=== PATIENT | female | born 1945 | race Caucasian/White ===

== ENCOUNTER 2017-05-18 10:23 | Emergency (ER) | payer OTHER ==
[~2017-05-18] VITALS: Ht 157.5 cm; Wt 61.2 kg
[~2017-05-18 10:23] MED LIST: ACET325; ASPI81CH PO; ASPI81EC PO; ATOR10 PO; Aspir 8181 MG; COPAXIN; Copaxone20 MG INJ; DOCU100; ESTRTP VAG; Fish Oil300 MG; HYDR1TAB94; METF500; METR500; MULTI VITAMIN1 EACH; OXYB5 PO; PARO10; PARO10 PO; PRAV10 PO; SACC250C; SENN187 PO; TRIM100 PO; VITAMIN D31000 UNIT; Vesicare10 MG PO; [UNRECOGNIZED DRUG - OTHER] SQ
== END 2017-05-18 13:33 | disposition home or self-care (01) ==
LOC: ER 10:23
DX: Z46.6 Encounter for fitting and adjustment of urinary device (principal); Z88.0 Allergy status to penicillin; Z88.1 Allergy status to other antibiotic agents; Z88.8 Allergy status to other drugs, medicaments and biological substances; Z79.899 Other long term (current) drug therapy; Z79.82 Long term (current) use of aspirin; Z87.891 Personal history of nicotine dependence
CPT/HCPCS: 51705; 99283; C2627

== ENCOUNTER 2017-06-13 09:49 | Emergency (ER) | payer OTHER ==
[~2017-06-13] VITALS: Ht 157.5 cm; Wt 59.0 kg
== END 2017-06-13 10:38 | disposition home or self-care (01) ==
LOC: ER 09:49
DX: Z46.6 Encounter for fitting and adjustment of urinary device (principal); Z87.891 Personal history of nicotine dependence; Z88.0 Allergy status to penicillin; Z88.1 Allergy status to other antibiotic agents; Z88.8 Allergy status to other drugs, medicaments and biological substances; Z79.899 Other long term (current) drug therapy; Z79.84 Long term (current) use of oral hypoglycemic drugs
CPT/HCPCS: 51102; 99283; C2627

== ENCOUNTER 2017-07-13 11:51 | Emergency (ER) | payer OTHER ==
[~2017-07-13] VITALS: Ht 162.6 cm; Wt 77.1 kg
== END 2017-07-13 13:05 | disposition home or self-care (01) ==
LOC: ER 11:51
DX: T83.498A Other mechanical complication of other prosthetic devices, implants and grafts of genital tract, initial encounter (principal); Z88.0 Allergy status to penicillin; Z88.1 Allergy status to other antibiotic agents; Z88.8 Allergy status to other drugs, medicaments and biological substances; Z79.899 Other long term (current) drug therapy; Z79.82 Long term (current) use of aspirin; Z79.84 Long term (current) use of oral hypoglycemic drugs; Z87.891 Personal history of nicotine dependence
CPT/HCPCS: 51102; 99283; C2627

== ENCOUNTER 2017-08-09 09:05 | Emergency (ER) | payer OTHER ==
[~2017-08-09] VITALS: Ht 160 cm; Wt 59.0 kg
[2017-08-09 10:23] LABS: Source, Urine Catheter
[2017-08-09 11:10] LABS: Bilirubin, Urine Neg (Neg); Blood, Urine 5+ (Neg); Glucose Qualitative, Urine Neg (Neg); Ketones, Urine Neg (Neg); Leukocyte Esterase, Urine 3+ (Neg); Nitrite, Urine Neg (Neg); Protein, Urine 4+ (Neg); Urobilinogen, Urine NORM (Normal)
[2017-08-09 11:21] LABS: Appearance, Urine Turbid (Clear); Color, Urine Red (P-Yellow)
[2017-08-09 11:23] LABS: Red Blood Cells, Urine TNTC /hpf (0-2); White Blood Cells, Urine TNTC /hpf (0-5)
[2017-08-09 11:24] LABS: Bacteria Many /hpf; Squamous Epithelial Cells Mod /hpf (Few)
[2017-08-09 11:30] LABS: Triple Phosphate Crystals Many /hpf
[2017-08-09 11:35] LABS: Mucus Heavy (0-Heavy)
[2017-08-09 11:38] LABS: Amorphous Heavy (0-Heavy)
== END 2017-08-09 10:30 | disposition home or self-care (01) ==
LOC: ER 09:05
PROVIDERS: Emergency Medicine
DX: Z46.6 Encounter for fitting and adjustment of urinary device (principal); Z87.891 Personal history of nicotine dependence; Z88.0 Allergy status to penicillin; Z88.1 Allergy status to other antibiotic agents; Z79.899 Other long term (current) drug therapy; Z79.82 Long term (current) use of aspirin; Z79.84 Long term (current) use of oral hypoglycemic drugs
CPT/HCPCS: 51102; 81001; 87086; 99283

== ENCOUNTER → 2017-09-04 | Outpatient (CLI) | payer OTHER | END | disposition home or self-care (01) | LOC: LAB SHORT 11:29 → LAB EV 11:29 | DX: R35.0 Frequency of micturition (principal) | CPT/HCPCS: 87086 ==

== ENCOUNTER 2018-03-30 00:27 | Day surgery (SDC) | payer OTHER ==
[~2018-03-30 00:27] MED LIST changes: +FISH OIL OMEGA1 EAC2 PO; -Fish Oil300 MG; -METF500; +METF500C PO; -MULTI VITAMIN1 EACH; +MULTI VITAMIN1 EACH PO
[2018-03-30] MEDS ORDERED: VITAMIN D31000 UNIT PO (14:30)
[2018-03-30] MEDS ORDERED: GLUC500 PO (14:32)
== END 2018-03-30 22:40 | disposition home or self-care (01) ==
LOC: ATC 00:27
DX: N39.0 Urinary tract infection, site not specified (principal); B96.1 Klebsiella pneumoniae [K. pneumoniae] as the cause of diseases classified elsewhere
CPT/HCPCS: J1335

== ENCOUNTER 2018-03-31 00:09 | Day surgery (SDC) | payer OTHER ==
[~2018-03-31 00:09] MED LIST changes: +GLUC500 PO; +VITAMIN D31000 UNIT PO
== END 2018-03-31 22:40 | disposition home or self-care (01) ==
LOC: ATC 00:09
DX: N39.0 Urinary tract infection, site not specified (principal); B96.1 Klebsiella pneumoniae [K. pneumoniae] as the cause of diseases classified elsewhere; G35 Multiple sclerosis; Z88.0 Allergy status to penicillin; Z88.8 Allergy status to other drugs, medicaments and biological substances
CPT/HCPCS: 96365; J1335

== ENCOUNTER 2018-04-01 07:41 | Day surgery (SDC) | payer OTHER | END 2018-04-01 23:15 | disposition home or self-care (01) | LOC: ATC 07:41 | DX: N39.0 Urinary tract infection, site not specified (principal); B96.1 Klebsiella pneumoniae [K. pneumoniae] as the cause of diseases classified elsewhere; G35 Multiple sclerosis; Z88.0 Allergy status to penicillin; Z88.8 Allergy status to other drugs, medicaments and biological substances | CPT/HCPCS: 96365; J1335 ==

== ENCOUNTER 2018-04-03 00:19 | Day surgery (SDC) | payer OTHER ==
--- NOTE | 2018-04-03 16:19 | NUR ---
PT STATES THAT SHE WILL NOT STAY BECAUSE SHE IS "HAVING ANXIETY" PT'S ANTIBIOTIC INFUSED. ONLY WAITED 5 MIN. PT IN MOTORIZED W/C, ENCOURAGED TO STAY.
== END 2018-04-03 15:00 | disposition home or self-care (01) ==
LOC: ATC 00:19
DX: N39.0 Urinary tract infection, site not specified (principal); B96.1 Klebsiella pneumoniae [K. pneumoniae] as the cause of diseases classified elsewhere; G35 Multiple sclerosis; Z88.0 Allergy status to penicillin; Z88.8 Allergy status to other drugs, medicaments and biological substances
CPT/HCPCS: 96365; J1335

== ENCOUNTER 2018-04-04 07:55 | Day surgery (SDC) | payer OTHER | END 2018-04-04 14:50 | disposition home or self-care (01) | LOC: ATC 07:55 | DX: N39.0 Urinary tract infection, site not specified (principal); B96.1 Klebsiella pneumoniae [K. pneumoniae] as the cause of diseases classified elsewhere; G35 Multiple sclerosis; Z88.0 Allergy status to penicillin; Z88.8 Allergy status to other drugs, medicaments and biological substances | CPT/HCPCS: 96365; J1335 ==

== ENCOUNTER 2018-04-05 07:51 | Day surgery (SDC) | payer OTHER | END 2018-04-05 14:34 | disposition home or self-care (01) | LOC: ATC 07:51 | DX: N39.0 Urinary tract infection, site not specified (principal); B96.1 Klebsiella pneumoniae [K. pneumoniae] as the cause of diseases classified elsewhere; G35 Multiple sclerosis; Z88.0 Allergy status to penicillin; Z88.8 Allergy status to other drugs, medicaments and biological substances | CPT/HCPCS: 96365; J1335 ==

== ENCOUNTER 2018-04-06 13:22 | Day surgery (SDC) | payer OTHER | END 2018-04-06 14:23 | disposition home or self-care (01) | LOC: ATC 13:22 | DX: N39.0 Urinary tract infection, site not specified (principal); B96.1 Klebsiella pneumoniae [K. pneumoniae] as the cause of diseases classified elsewhere; G35 Multiple sclerosis; Z88.1 Allergy status to other antibiotic agents; Z88.0 Allergy status to penicillin; Z79.899 Other long term (current) drug therapy; Z79.82 Long term (current) use of aspirin | CPT/HCPCS: 96365; J1335 ==

== ENCOUNTER 2018-04-07 13:47 | Day surgery (SDC) | payer OTHER | END 2018-04-07 14:27 | disposition home or self-care (01) | LOC: ATC 13:47 | DX: N39.0 Urinary tract infection, site not specified (principal); G35 Multiple sclerosis; B96.1 Klebsiella pneumoniae [K. pneumoniae] as the cause of diseases classified elsewhere; Z88.1 Allergy status to other antibiotic agents; Z88.0 Allergy status to penicillin; Z79.82 Long term (current) use of aspirin; Z79.899 Other long term (current) drug therapy | CPT/HCPCS: 96365; J1335 ==

== ENCOUNTER → 2018-12-26 | Outpatient (CLI) | payer OTHER | END | disposition home or self-care (01) | LOC: PLD 08:18 → LAB SHORT 08:18 | DX: D48.5 Neoplasm of uncertain behavior of skin (principal) | CPT/HCPCS: 88305 ==

== ENCOUNTER → 2019-07-11 | Outpatient (CLI) | payer OTHER ==
[2019-07-11 22:11] LABS: Source, Urine Catheter
[2019-07-11 22:15] LABS: Bilirubin, Urine Neg (Neg); Blood, Urine 5+ (Neg); Glucose Qualitative, Urine Neg (Neg); Ketones, Urine Neg (Neg); Leukocyte Esterase, Urine 2+ (Neg); Nitrite, Urine Neg (Neg); Protein, Urine 3+ (Neg); Urobilinogen, Urine NORM (Normal)
[2019-07-11 22:28] LABS: Appearance, Urine Cloudy (Clear); Color, Urine Yellow (P-Yellow)
[2019-07-11 22:37] LABS: Bacteria Mod /hpf; Mucus Mod (0-Heavy); Squamous Epithelial Cells Mod /hpf (Few); Transitional Epithelial Cells Few /hpf (0-Rare)
== END | disposition home or self-care (01) ==
LOC: LAB 19:30 → LAB SHORT 19:30
PROVIDERS: Hospitalist
DX: I08.0 Rheumatic disorders of both mitral and aortic valves (principal); E78.5 Hyperlipidemia, unspecified; E55.9 Vitamin D deficiency, unspecified; G35 Multiple sclerosis; I10 Essential (primary) hypertension; N31.9 Neuromuscular dysfunction of bladder, unspecified; R33.9 Retention of urine, unspecified; R51 Headache
CPT/HCPCS: 81001; 87077; 87086; 87186

== ENCOUNTER 2020-05-05 09:53 | Inpatient (IN) | payer OTHER, MEDICARE ==
[~2020-05-05] VITALS: Ht 165.1 cm; Wt 56.9 kg
[~2020-05-05 09:53] MED LIST changes: -ATOR10 PO; -Copaxone20 MG INJ; -METF500C PO; -PARO10 PO
[2020-05-05 10:14] LABS: Source, Urine Clean Catch
[2020-05-05 10:23] LABS: BASOPHILS ABSOLUTE AUTO 0.06 K/mm3 (0.00-0.23); BASOPHILS PERCENT AUTO 1 % (0-2); EOSINOPHILS ABSOLUTE AUTO 0.37 K/mm3 (0.00-0.68); EOSINOPHILS PERCENT AUTO 7 % (0-6); Hematocrit 43.2 % (33.0-51.0); Hemoglobin 13.9 g/dL (11.5-16.0); IMMATURE GRAN ABSOLUTE AUTO 0.01 K/mm3 (0.00-0.10); IMMATURE GRAN PERCENT AUTO 0 % (0-1); LYMPHOCYTES PERCENT AUTO 27 % (21-46); MONOCYTES ABSOLUTE AUTO 0.44 K/mm3 (0.16-1.47); MONOCYTES PERCENT AUTO 9 % (4-13); Mean Corpuscular HGB 28.8 pg (26.0-34.0); Mean Corpuscular HGB Conc 32.2 g/dL (31.5-36.5); Mean Corpuscular Volume 89 fL (80-100); Mean Platelet Volume 9.1 fL (9.1-12.4); NEUTROPHILS ABSOLUTE AUTO 2.85 K/mm3 (1.96-9.15); NEUTROPHILS PERCENT AUTO 56 % (41-73); Platelet Count 279 K/mm3 (150-400); RDW Coefficient Variation 14.6 % (11.7-14.2); Red Blood Cell Count 4.83 M/mm3 (3.80-5.20); White Blood Cell Count 5.13 K/mm3 (4.00-11.30)
[2020-05-05 10:25] LABS: Appearance, Urine Turbid (Clear); Bilirubin, Urine Neg (Neg); Blood, Urine 5+ (Neg); Color, Urine Yellow (P-Yellow); Glucose Qualitative, Urine Neg (Neg); Ketones, Urine Neg (Neg); Leukocyte Esterase, Urine 3+ (Neg); Nitrite, Urine Pos (Neg); Protein, Urine 2+ (Neg); Urobilinogen, Urine NORM (Normal)
[2020-05-05 10:38] LABS: Alanine Aminotransfer (ALT/SGP 15 U/L (12-78); Albumin, Blood 3.5 g/dL (3.4-5.0); Alk Phos 79 U/L (50-136); Anion Gap 6 mmol/L (6-16); Aspartate Aminotrans (AST/SGOT 16 U/L (12-37); Bilirubin, Total 0.5 mg/dL (0.1-1.0); Blood Urea Nitrogen 18 mg/dL (8-24); Bun/Creatinine Ratio 19.2 (12.0-20.0); CO2, Blood 29 mmol/L (21-32); Calcium, Blood 8.8 mg/dL (8.5-10.1); Chloride, Blood 108 mmol/L (98-108); Creatinine, Blood 0.94 mg/dL (0.40-1.00); Globulin, Blood 3.5 g/dL (2.2-4.0); Glomerular Filtration Rate >60 (60-); Glucose, Blood 95 mg/dL (70-99); Potassium, Blood 4.2 mmol/L (3.5-5.5); Sodium, Blood 143 mmol/L (136-145)
[2020-05-05 10:53] LABS: Bacteria Many /hpf; Squamous Epithelial Cells Few /hpf (Few); Triple Phosphate Crystals Few /hpf
[2020-05-05] MEDS ORDERED: PARO10 PO (12:27)
[2020-05-05] MEDS ORDERED: SPIRONOLACTONE25 MG PO (12:28)
[2020-05-05] MEDS ORDERED: COPAXONE40 MG/1 ML SC (12:28)
[2020-05-05] MEDS ORDERED: METF500 PO (12:29)
[2020-05-05] MEDS ORDERED: ATOR40TA PO (12:29)
--- NOTE | 2020-05-05 16:45 | NUR ---
PT UNABLE TO ANSWER QUESTIONS DURING ADMISSION ASSESSMENT
--- NOTE | 2020-05-05 19:29 | NUR ---
SHIFT SUMMARY PT IS A&0X2, KNOWS NAME A . PT IS UNABLE TO ANSWER MOST QUESTIONS, SHE PAUSES AND THEN BECOMES FRUSTRATED WITH NOT BEING ABLE TO COME UP WITH THE WORDS. SHE WILL BE COME FOCUED AND IS HARD TO REORIENT. FOR EXAMPLE TRYING TO DIAL A PHONE NUMBER OVER AND BECOMES FRUSTRATED WHEN IT DOES NOT RING. UNABLE TO GET A COMPLETE HISTORY FOR PT. SHE HAS A SUPERPUBIC CATH IN PLACE. PT IS CONTIENT OF BOWEL. PRESSURE ULCER NOTED ON COCCYX OF PT, PICTURES IN CHART AND MEPILEX APPLIED. PT CURENTLY IN ROOM ON PHONE WITH CAREGIVER. BEDSIDE REPORT GIVEN TO ONCOMING FITNESS FLOOR ATTENDANT NURSE.
[2020-05-06 05:09] LABS: BASOPHILS ABSOLUTE AUTO 0.03 K/mm3 (0.00-0.23); BASOPHILS PERCENT AUTO 1 % (0-2); EOSINOPHILS ABSOLUTE AUTO 0.32 K/mm3 (0.00-0.68); EOSINOPHILS PERCENT AUTO 6 % (0-6); Hematocrit 42.8 % (33.0-51.0); Hemoglobin 13.8 g/dL (11.5-16.0); IMMATURE GRAN ABSOLUTE AUTO 0.01 K/mm3 (0.00-0.10); IMMATURE GRAN PERCENT AUTO 0 % (0-1); LYMPHOCYTES ABSOLUTE AUTO 1.45 K/mm3 (0.84-5.20); LYMPHOCYTES PERCENT AUTO 26 % (21-46); MONOCYTES ABSOLUTE AUTO 0.45 K/mm3 (0.16-1.47); MONOCYTES PERCENT AUTO 8 % (4-13); Mean Corpuscular HGB 28.8 pg (26.0-34.0); Mean Corpuscular HGB Conc 32.2 g/dL (31.5-36.5); Mean Corpuscular Volume 89 fL (80-100); Mean Platelet Volume 8.9 fL (9.1-12.4); NEUTROPHILS ABSOLUTE AUTO 3.27 K/mm3 (1.96-9.15); NEUTROPHILS PERCENT AUTO 59 % (41-73); Platelet Count 265 K/mm3 (150-400); RDW Coefficient Variation 14.4 % (11.7-14.2); RDW Standard Deviation 47.1 fL (35.1-46.3); Red Blood Cell Count 4.79 M/mm3 (3.80-5.20); White Blood Cell Count 5.53 K/mm3 (4.00-11.30)
[2020-05-06 05:26] LABS: Anion Gap 7 mmol/L (6-16); Blood Urea Nitrogen 20 mg/dL (8-24); Bun/Creatinine Ratio 22.5 (12.0-20.0); CO2, Blood 26 mmol/L (21-32); Calcium, Blood 9.3 mg/dL (8.5-10.1); Chloride, Blood 108 mmol/L (98-108); Creatinine, Blood 0.89 mg/dL (0.40-1.00); Glomerular Filtration Rate >60 (60-); Glucose, Blood 113 mg/dL (70-99); Magnesium, Blood 2.2 mg/dL (1.6-2.4); Potassium, Blood 3.8 mmol/L (3.5-5.5); Sodium, Blood 141 mmol/L (136-145)
--- NOTE | 2020-05-06 07:49 | NUR ---
SHIFT SUMMARY: PATIENT CONTINUES TO HAVE CONFUSION THIS AM BUT IS A LITTLE LESS FRUSTRATED WITH TRYING TO USE TV REMOTE AND PHONE. SUPRA PUBIC CATHETHER IS PATENT FOR 800ML OF YELLOW URINE, NO ODOR OBSERVED. THIS AM PATIENT BECOMES VERY IRRITATED WHEN SHE ASKED TOOL AND DIE ASSEMBLER TO DISEMPACT HER FOR ELIMINATION. EDUCATION WAS GIVEN THAT THIS PROCEEDURE WOULD HAVE TO BE APPROVED BY MD AND VERIFY WITH BORDER MEASURER AND CUTTER THAT THIS IS CORRET INFORMATION. PATIENT DENIED ABD. PAIN, POSITIVE BS IN ALL QUADS OBSERVED. BED ALARM IS ON FOR SAFETY.
--- NOTE | 2020-05-06 13:44 | NUR ---
CARE COORDINATION REFERRAL - ADMIT: 05/05/20 DISCHARGE: DX: AMS, UTI, CONFUSION CC: KWILCOX JAMES CALL: RESIDENCE: HOME CAREGIVER: VINICIUS CLARK, FAMILY MEMBER, DX: MS, DM, ANEMIA, ACUTE CYSTITIS, SEE LIST DME: WHEELCHAIR, DM SUPPLIES, SHOWER CHAIR, LIFT CHAIR CCM: REFERRAL 07/22/2019 HOME HEALTH: [facility]; [facility] SUMMARY: ADMIT: 05/05/20
--- NOTE | 2020-05-06 14:30 | NUR ---
Transfer of Care Patient transferred from 329 to 346 d/t continued confusion. Report given to Maria Teresa REYNAGA. Patient transferred with bed and personal belongings. Family has been notified of room transfer. A/O to self. Easily agitated and frustrated d/t inability to verbally make needs known. Calls inappropriately by yelling. C/O headache, medicated x 1. Patient refused physical therapy. Received in report that patient is wheelchair bound d/t MS. Suprapubic intact and draining.
--- NOTE | 2020-05-06 17:12 | NUR ---
SHIFT SUMMARY PT TRANSFERED TO ROOM 346 THIS AFTERNOON. PT CALLS OUT INTO HALLWAY OFTEN AND ALERT TO SELF ONLY. PT HAS DIFFICULTY FINDING THE RIGHT WORDS WHEN IN NEED. PT MEDICATED FOR A VAZQUEZ ONCE SINCE TRANSFERED. PT SISTER, LINDSAY FROM [place] CAME IN TO SEE PT WANTING AN UPDATE. LINDSAY IS NOT LISTED A PERSON TO CONTACT. LINDSAY INFORMED THAT NO INFO CAN BE GIVEN AT THIS TIME & A SOCIAL SERVICE CONSULT WAS PLACED TO HELP DETERMINE A POA. SUPRAPUBIC CATH PATENT & DRAINING TO GRAVITY. PALLIATIVE CARE CONSULT PLACED BY DR. ANDERSON. PT RESTING IN BED. CALL LIGHT IN REACH.
--- NOTE | 2020-05-06 20:06 | NUR ---
ASSUMPTION OF CARE. KAYKAY IS ALERT TO SELF, DOES NOT KNOW DAY OR PLACE. SHE HAS DIFFICULTY FINDING WORDS AND TENDS TO BE ALL OVER THE PLACE IN CONVERSATION. SHE IS UNABLE TO FINISH A COMPLETE SENTENCE. FORGETS EASILY AND GETS STUCK ON ON IDEA FORGETTING WHAT SHE HAS BEEN TOLD. SUPERPUBIC CATH CLEAR YELLOW, DRAINAGE CRUSTED OVER ON SITE. WILL CLEAN AND PUT GAUZE IN PLACE. DENIES ANY PAIN OR DISCOMFORT. DRESSING TO COCCYX CDI PLACED YESTERDAY. CALL LIGHT IS IN REACH, BED ALARM IS ON.
--- NOTE | 2020-05-06 22:07 | NUR ---
DR. BERRY IN TO SEE THE PATIENT. AND DAUGHTER ARE AT BEDSIDE.
--- NOTE | 2020-05-06 23:58 | NUR ---
KAYKAY HAS BEEN A LITTLE UPSET THAT SHE DOES NOT GO HOME TONIGHT. TRIED TO EXPLAIN TO HER WHY SHE IS STAYING BUT SHE STILL CRIED FOR A FEW MINUTES. SINCE THEN SHE HAS BEEN WATCHING TV, SHE DID TRY TO USE THE BED LÓPEZ WITH NO RESULTS EXCEPT A SMEAR. CATH CARE WAS PERFORMED. BED ALARM IS COMPOUND WORKER LIGHT IS IN REACH.
--- NOTE | 2020-05-07 05:26 | NUR ---
SHIFT SUMMARY: ALERT TO SELF AT START OF SHIFT BUT THEN LATER SHE CALLED ME IN THE ROOM TO TELL ME THE ANSWERS TO SOME OF THE ORINTATION QUESTIONS LIKE SHE HAD BEEN PRACTICING THEM. CONFUSED AND UNABLE TO REMEMBER DIRECTIONS WELL. CALLS FREQUENTLY BUT IS UNABLE TO STATE NEEDS DUE TO DIFFICULTY IN FINDING WORDS. WANTED TO GO HOME LAST NIGHT AND GOT UPSET THAT SHE HAD TO STAY. CATHETER PATENT AND DRAINING. CATH CARE PROVIDED. DID GIVE SUPPOSITORY LAST NIGHT BUT ONLY HAVE HAD SCANT RESULTS. DENIES ANY PAIN OR COMPLAINTS. VS WNL, AFEBRILE. CALL LIGHT IN REACH, BED ALARM ON.
--- NOTE | 2020-05-07 12:53 | NUR ---
ADMIT: 05/05/20 DISCHARGE: 05/07/20 DX: AMS, UTI, Confusion CC: cpeabody JAMES CALL: Call caregiver at [facility] for james- Lissa, or her cell phone james appt 1 week. RESIDENCE: Home CAREGIVER: Lissa [phone] 6 days a week, 6 hours a day, family for Sat and back up Kristi Pinon, Family Member, Domonique, Sister [phone] DX: MS, DM, anemia, acute cystitis, see list DME: wheelchair, Dm supplies, shower chair, lift chair, indwelling castro cath CCM: Referral 07/22/2019 HOME HEALTH: [facility]-2020; [facility]- 2019- no home health servies needed. 05/07/20 SUMMARY: Admit: 05/05/20 05/07/20 Discharge home with caregiver assistance- 6 days a week, 6 hours a day, Family is also available to help with Caregiver not available. prefers Transport by Wheelchair. No home health needed. Has all the DME she needs. Discussed JAMES call and 1 week follow up with james. Reviewed discharge checklist, no needs identified. cp Acute encephalopathy
[2020-05-07] MEDS ORDERED: BISA10S PR (13:31)
[2020-05-07] MEDS ORDERED: MIRALAX17 GM PO (13:32)
--- NOTE | 2020-05-07 14:01 | NUR ---
SUMMARY/DISCHARGE PT BEING DISCHARGED HOME, PT VERBALIZED UNDERSTANDING OF DISCHARGE INSTRUCTIONS REGARDING FOLLOW UP AND MEDICATIONS, TRANSPORTATION ARRANGED BY CARE MANAGEMENT
--- NOTE | 2020-05-07 14:11 | NUR ---
PT TAKEN SAFELY OUT VIA WHEELCHAIR
== END 2020-05-07 14:08 | disposition home or self-care (01) | DRG 699 ==
LOC: ER 09:53 → ERHOLD 11:12 → MEDS 16:02
PROVIDERS: Emergency Medicine; ADMIT Internal Medicine
DX: T83.510A Infection and inflammatory reaction due to cystostomy catheter, initial encounter (principal); N39.0 Urinary tract infection, site not specified; N13.6 Pyonephrosis; G93.49 Other encephalopathy; N13.30 Unspecified hydronephrosis; G35 Multiple sclerosis; N31.9 Neuromuscular dysfunction of bladder, unspecified; E11.9 Type 2 diabetes mellitus without complications; E78.5 Hyperlipidemia, unspecified; F32.9 Major depressive disorder, single episode, unspecified; Z86.73 Personal history of transient ischemic attack (TIA), and cerebral infarction without residual deficits; Z88.0 Allergy status to penicillin; Z88.1 Allergy status to other antibiotic agents; Z90.49 Acquired absence of other specified parts of digestive tract; Z98.890 Other specified postprocedural states; Z87.891 Personal history of nicotine dependence; Z66 Do not resuscitate; Z79.899 Other long term (current) drug therapy; Z79.84 Long term (current) use of oral hypoglycemic drugs; Z87.442 Personal history of urinary calculi
CPT/HCPCS: 36415; 71045; 80048; 80053; 81001; 83735; 85025; 87086; 93005; 93010; 96374; 97162; 97530; 99285-25; A9270; J0696; J1650; J7050

== ENCOUNTER → 2020-06-17 | Outpatient (CLI) | payer OTHER ==
[~2020-06-17] MED LIST changes: +ATOR40TA PO; +BISA10S PR; +COPAXONE40 MG/1 ML SC; +METF500 PO; +MIRALAX17 GM PO; +PARO10 PO; +SPIRONOLACTONE25 MG PO
[2020-06-17 18:18] LABS: Appearance, Urine Hazy (Clear); Bilirubin, Urine Neg (Neg); Blood, Urine 3+ (Neg); Color, Urine Yellow (P-Yellow); Glucose Qualitative, Urine Neg (Neg); Ketones, Urine Neg (Neg); Leukocyte Esterase, Urine 3+ (Neg); Nitrite, Urine Pos (Neg); Protein, Urine 3+ (Neg); Urobilinogen, Urine NORM (Normal)
[2020-06-17 18:31] LABS: Amorphous Light (0-Heavy); Bacteria Many /hpf; Red Blood Cells, Urine 0-2 /hpf (0-2); Squamous Epithelial Cells Mod /hpf (Few); White Blood Cells, Urine TNTC /hpf (0-5)
== END | disposition home or self-care (01) ==
LOC: LAB 15:30 → LAB SHORT 15:30
PROVIDERS: Hospitalist
DX: Z43.5 Encounter for attention to cystostomy (principal); N30.00 Acute cystitis without hematuria
CPT/HCPCS: 81001; 87077; 87086; 87186

== ENCOUNTER → 2020-08-27 | Outpatient (CLI) | payer OTHER ==
[2020-08-27 17:27] LABS: Source, Urine Catheter
[2020-08-27 17:36] LABS: Appearance, Urine Cloudy (Clear); Bilirubin, Urine Neg (Neg); Blood, Urine 4+ (Neg); Color, Urine Yellow (P-Yellow); Glucose Qualitative, Urine Neg (Neg); Ketones, Urine Neg (Neg); Leukocyte Esterase, Urine 3+ (Neg); Nitrite, Urine Neg (Neg); Protein, Urine 3+ (Neg); Urobilinogen, Urine NORM (Normal)
[2020-08-27 17:44] LABS: Amorphous Light (0-Heavy); Bacteria Many /hpf; Squamous Epithelial Cells Mod /hpf (Few); White Blood Cells, Urine 25-50 /hpf (0-5)
== END | disposition home or self-care (01) ==
LOC: LAB SHORT 15:45 → LAB 15:45
PROVIDERS: Hospitalist
DX: G35 Multiple sclerosis (principal); N31.9 Neuromuscular dysfunction of bladder, unspecified; Z87.440 Personal history of urinary (tract) infections
CPT/HCPCS: 81001; 87077; 87086; 87186

== ENCOUNTER → 2021-03-18 | Outpatient (CLI) | payer OTHER ==
[2021-03-18 12:31] LABS: Microalb/Creat Ratio UR, Rand 219.858 mg/g (0.000-30.000)
== END | disposition home or self-care (01) ==
LOC: LAB SHORT 11:13
PROVIDERS: Hospitalist
DX: E11.9 Type 2 diabetes mellitus without complications (principal)
CPT/HCPCS: 82043; 82570

== ENCOUNTER → 2021-04-08 | Outpatient (CLI) | payer OTHER ==
[2021-04-08 14:49] LABS: Source, Urine Foley catheter
[2021-04-08 16:00] LABS: Bilirubin, Urine Neg (Neg); Blood, Urine 3+ (Neg); Glucose Qualitative, Urine Neg (Neg); Ketones, Urine 1+ (Neg); Leukocyte Esterase, Urine 3+ (Neg); Nitrite, Urine Neg (Neg); Protein, Urine 1+ (Neg); Specific Gravity, Urine 1.015 (1.003-1.022); Urobilinogen, Urine NORM (Normal)
[2021-04-08 16:15] LABS: Appearance, Urine Cloudy (Clear); Color, Urine Pale Yellow (P-Yellow)
[2021-04-08 16:15] LABS: BASOPHILS ABSOLUTE AUTO 0.05 K/mm3 (0.00-0.23); BASOPHILS PERCENT AUTO 1 % (0-2); EOSINOPHILS ABSOLUTE AUTO 0.29 K/mm3 (0.00-0.68); EOSINOPHILS PERCENT AUTO 4 % (0-6); Hematocrit 42.6 % (33.0-51.0); Hemoglobin 13.2 g/dL (11.5-16.0); IMMATURE GRAN ABSOLUTE AUTO 0.03 K/mm3 (0.00-0.10); IMMATURE GRAN PERCENT AUTO 0 % (0-1); LYMPHOCYTES ABSOLUTE AUTO 1.59 K/mm3 (0.84-5.20); LYMPHOCYTES PERCENT AUTO 22 % (21-46); MONOCYTES ABSOLUTE AUTO 0.52 K/mm3 (0.16-1.47); MONOCYTES PERCENT AUTO 7 % (4-13); Mean Corpuscular HGB 27.7 pg (26.0-34.0); Mean Corpuscular Volume 89 fL (80-100); NEUTROPHILS ABSOLUTE AUTO 4.72 K/mm3 (1.96-9.15); NEUTROPHILS PERCENT AUTO 66 % (41-73); Platelet Count 443 K/mm3 (150-400); RDW Coefficient Variation 14.1 % (11.7-14.2); RDW Standard Deviation 46.1 fL (35.1-46.3); Red Blood Cell Count 4.77 M/mm3 (3.80-5.20)
[2021-04-08 16:16] LABS: Bacteria Many /hpf; Squamous Epithelial Cells Mod /hpf (Few)
[2021-04-08 16:17] LABS: Amorphous Heavy (0-Heavy); Renal Epithelial Few /hpf (0-Rare)
[2021-04-08 16:46] LABS: Alanine Aminotransfer (ALT/SGP 14 U/L (12-78); Albumin/Globulin Ratio 0.8 (0.8-1.8); Alk Phos 101 U/L (50-136); Anion Gap 6 mmol/L (6-16); Aspartate Aminotrans (AST/SGOT 16 U/L (12-37); Bilirubin, Total 0.3 mg/dL (0.1-1.0); Blood Urea Nitrogen 15 mg/dL (8-24); Bun/Creatinine Ratio 19.4 (12.0-20.0); CO2, Blood 28 mmol/L (21-32); Calcium, Blood 9.4 mg/dL (8.5-10.1); Chloride, Blood 102 mmol/L (98-108); Creatinine, Blood 0.77 mg/dL (0.40-1.00); Globulin, Blood 3.9 g/dL (2.2-4.0); Glomerular Filtration Rate >60 (60-); Glucose, Blood 98 mg/dL (70-99); Potassium, Blood 4.2 mmol/L (3.5-5.5); Sodium, Blood 136 mmol/L (136-145); Total Protein, Blood 6.9 g/dL (6.4-8.2)
== END ==
LOC: LAB SHORT 14:42
PROVIDERS: Hospitalist
DX: R31.0 Gross hematuria (principal); E11.9 Type 2 diabetes mellitus without complications; E78.49 Other hyperlipidemia
CPT/HCPCS: 80053; 81001; 83036; 84443; 85025; 87077; 87086; 87186

== ENCOUNTER 2021-06-07 12:56 | Emergency (ER) | payer OTHER ==
[~2021-06-07] VITALS: Ht 157.5 cm; Wt 63.5 kg
[2021-06-07 14:54] LABS: BASOPHILS ABSOLUTE AUTO 0.06 K/mm3 (0.00-0.23); BASOPHILS PERCENT AUTO 1 % (0-2); EOSINOPHILS ABSOLUTE AUTO 0.46 K/mm3 (0.00-0.68); EOSINOPHILS PERCENT AUTO 7 % (0-6); Hemoglobin 11.9 g/dL (11.5-16.0); IMMATURE GRAN ABSOLUTE AUTO 0.02 K/mm3 (0.00-0.10); IMMATURE GRAN PERCENT AUTO 0 % (0-1); LYMPHOCYTES ABSOLUTE AUTO 1.28 K/mm3 (0.84-5.20); LYMPHOCYTES PERCENT AUTO 19 % (21-46); MONOCYTES ABSOLUTE AUTO 0.64 K/mm3 (0.16-1.47); MONOCYTES PERCENT AUTO 10 % (4-13); Mean Corpuscular HGB 27.7 pg (26.0-34.0); Mean Corpuscular HGB Conc 30.5 g/dL (31.5-36.5); Mean Corpuscular Volume 91 fL (80-100); Mean Platelet Volume 8.5 fL (9.1-12.4); NEUTROPHILS ABSOLUTE AUTO 4.19 K/mm3 (1.96-9.15); NEUTROPHILS PERCENT AUTO 63 % (41-73); Platelet Count 456 K/mm3 (150-400); RDW Coefficient Variation 18.3 % (11.7-14.2); White Blood Cell Count 6.65 K/mm3 (4.00-11.30)
[2021-06-07 15:13] LABS: Alanine Aminotransfer (ALT/SGP 12 U/L (12-78); Albumin, Blood 2.7 g/dL (3.4-5.0); Albumin/Globulin Ratio 0.6 (0.8-1.8); Alk Phos 92 U/L (50-136); Anion Gap 7 mmol/L (6-16); Aspartate Aminotrans (AST/SGOT 11 U/L (12-37); Bilirubin, Total 0.3 mg/dL (0.1-1.0); Blood Urea Nitrogen 23 mg/dL (8-24); Bun/Creatinine Ratio 29.8 (12.0-20.0); CO2, Blood 25 mmol/L (21-32); Calcium, Blood 9.5 mg/dL (8.5-10.1); Chloride, Blood 107 mmol/L (98-108); Creatinine, Blood 0.77 mg/dL (0.40-1.00); Globulin, Blood 4.9 g/dL (2.2-4.0); Glomerular Filtration Rate >60 (60-); Glucose, Blood 111 mg/dL (70-99); Potassium, Blood 4.6 mmol/L (3.5-5.5); Sodium, Blood 139 mmol/L (136-145); Total Protein, Blood 7.6 g/dL (6.4-8.2)
[2021-06-07 16:41] LABS: Source, Urine Clean Catch
[2021-06-07 16:46] LABS: Appearance, Urine Cloudy (Clear); Bilirubin, Urine Neg (Neg); Blood, Urine 5+ (Neg); Color, Urine Yellow (P-Yellow); Glucose Qualitative, Urine Neg (Neg); Ketones, Urine Neg (Neg); Leukocyte Esterase, Urine 3+ (Neg); Nitrite, Urine Neg (Neg); Protein, Urine 3+ (Neg); Urobilinogen, Urine NORM (Normal)
[2021-06-07 17:15] LABS: Red Blood Cells, Urine 50-100 /hpf (0-2); White Blood Cells, Urine 50-100 /hpf (0-5)
[2021-06-07 17:16] LABS: Bacteria Many /hpf; Squamous Epithelial Cells Few /hpf (Few)
[2021-06-07 17:18] LABS: Mucus Light (0-Heavy)
[2021-06-07] MEDS ORDERED: CEPH500 PO (17:28)
[2021-06-07] MEDS ORDERED: Monodox100 MG PO (17:51)
== END 2021-06-07 18:39 | disposition home or self-care (01) ==
LOC: ER 12:56
PROVIDERS: Physician Assistant
DX: N39.0 Urinary tract infection, site not specified (principal); E11.9 Type 2 diabetes mellitus without complications; E78.5 Hyperlipidemia, unspecified; Z86.73 Personal history of transient ischemic attack (TIA), and cerebral infarction without residual deficits; Z87.442 Personal history of urinary calculi
CPT/HCPCS: 36415; 80053; 81001; 85025; 99285; A9270

== ENCOUNTER 2021-07-05 11:16 | Emergency (ER) | payer OTHER ==
[~2021-07-05] VITALS: Ht 157.5 cm; Wt 61.2 kg
[~2021-07-05 11:16] MED LIST changes: +CEPH500 PO; +Monodox100 MG PO
== END 2021-07-05 12:19 | disposition home or self-care (01) ==
LOC: ER 11:16
DX: S64.22XA Injury of radial nerve at wrist and hand level of left arm, initial encounter (principal); W05.0XXA Fall from non-moving wheelchair, initial encounter; E78.5 Hyperlipidemia, unspecified; E11.9 Type 2 diabetes mellitus without complications; Z79.84 Long term (current) use of oral hypoglycemic drugs; Z88.1 Allergy status to other antibiotic agents; Z88.0 Allergy status to penicillin
CPT/HCPCS: 99284

== ENCOUNTER → 2021-07-13 | Outpatient (CLI) | payer OTHER ==
[2021-07-13 15:23] LABS: BASOPHILS ABSOLUTE AUTO 0.04 K/mm3 (0.00-0.23); BASOPHILS PERCENT AUTO 1 % (0-2); EOSINOPHILS ABSOLUTE AUTO 0.36 K/mm3 (0.00-0.68); EOSINOPHILS PERCENT AUTO 8 % (0-6); Hematocrit 40.5 % (33.0-51.0); Hemoglobin 12.4 g/dL (11.5-16.0); IMMATURE GRAN ABSOLUTE AUTO 0.02 K/mm3 (0.00-0.10); IMMATURE GRAN PERCENT AUTO 0 % (0-1); LYMPHOCYTES ABSOLUTE AUTO 0.87 K/mm3 (0.84-5.20); LYMPHOCYTES PERCENT AUTO 18 % (21-46); MONOCYTES ABSOLUTE AUTO 0.29 K/mm3 (0.16-1.47); MONOCYTES PERCENT AUTO 6 % (4-13); Mean Corpuscular HGB 27.6 pg (26.0-34.0); Mean Corpuscular HGB Conc 30.6 g/dL (31.5-36.5); Mean Corpuscular Volume 90 fL (80-100); Mean Platelet Volume 8.9 fL (9.1-12.4); NEUTROPHILS PERCENT AUTO 67 % (41-73); Platelet Count 525 K/mm3 (150-400); Red Blood Cell Count 4.49 M/mm3 (3.80-5.20); White Blood Cell Count 4.78 K/mm3 (4.00-11.30)
[2021-07-13 15:58] LABS: Alanine Aminotransfer (ALT/SGP 16 U/L (12-78); Albumin/Globulin Ratio 0.7 (0.8-1.8); Alk Phos 100 U/L (50-136); Anion Gap 6 mmol/L (6-16); Aspartate Aminotrans (AST/SGOT 18 U/L (12-37); Bilirubin, Total 0.6 mg/dL (0.1-1.0); Blood Urea Nitrogen 14 mg/dL (8-24); Bun/Creatinine Ratio 18.6 (12.0-20.0); CHOL/HDL RATIO 3.6; CO2, Blood 27 mmol/L (21-32); Calcium, Blood 9.6 mg/dL (8.5-10.1); Chloride, Blood 107 mmol/L (98-108); Cholesterol 152 mg/dL (50-200); Creatinine, Blood 0.75 mg/dL (0.40-1.00); Globulin, Blood 4.5 g/dL (2.2-4.0); Glomerular Filtration Rate 83 (60-); Glucose, Blood 110 mg/dL (70-99); HDL Cholesterol 42 mg/dL (>39); LDL/HDL RATIO 2.1; Low Density Lipoprotein Chol 88 mg/dL (0-110); Potassium, Blood 4.2 mmol/L (3.5-5.5); Sodium, Blood 140 mmol/L (136-145); Total Protein, Blood 7.5 g/dL (6.4-8.2); Triglycerides 109 mg/dL (30-160); Very Low Density Lipoprot Chol 21 mg/dL (6-32)
== END ==
LOC: LAB SHORT 10:15
PROVIDERS: Hospitalist
DX: E78.5 Hyperlipidemia, unspecified (principal); R73.03 Prediabetes; R80.9 Proteinuria, unspecified
CPT/HCPCS: 80053; 80061; 82043; 83036; 85025

== ENCOUNTER → 2021-07-29 | Outpatient (CLI) | payer OTHER ==
[2021-07-29 17:55] LABS: Source, Urine Foley catheter
[2021-07-29 17:59] LABS: Appearance, Urine Turbid (Clear); Bilirubin, Urine Neg (Neg); Blood, Urine 5+ (Neg); Glucose Qualitative, Urine Neg (Neg); Ketones, Urine 2+ (Neg); Leukocyte Esterase, Urine 3+ (Neg); Nitrite, Urine Neg (Neg); Protein, Urine 3+ (Neg); Urobilinogen, Urine NORM (Normal); pH, Urine 6.5 (5.0-8.0)
[2021-07-29 18:07] LABS: Color, Urine Brown (P-Yellow)
[2021-07-29 18:09] LABS: Bacteria Many /hpf; Red Blood Cells, Urine TNTC /hpf (0-2); Squamous Epithelial Cells Not Seen /hpf (Few); White Blood Cells, Urine TNTC /hpf (0-5)
== END | disposition home or self-care (01) ==
LOC: LAB SHORT 13:30
PROVIDERS: Hospitalist
DX: Z09 Encounter for follow-up examination after completed treatment for conditions other than malignant neoplasm (principal); Z87.440 Personal history of urinary (tract) infections
CPT/HCPCS: 81001; 87077; 87086; 87186

== ENCOUNTER 2021-09-19 11:06 | Emergency (ER) | payer OTHER ==
[~2021-09-19] VITALS: Ht 157.5 cm; Wt 63.5 kg
[2021-09-19 13:40] LABS: Source, Urine Foley catheter
[2021-09-19] MEDS ORDERED: CEFP200 PO (13:52)
[2021-09-19] MEDS ORDERED: Percocet 5-3251 EACH PO (13:52)
[2021-09-19 14:11] LABS: Appearance, Urine Turbid (Clear); Bilirubin, Urine Neg (Neg); Blood, Urine 5+ (Neg); Color, Urine Yellow (P-Yellow); Glucose Qualitative, Urine Neg (Neg); Ketones, Urine Neg (Neg); Leukocyte Esterase, Urine 3+ (Neg); Nitrite, Urine Neg (Neg); Protein, Urine 3+ (Neg); Specific Gravity, Urine 1.015 (1.003-1.022); Urobilinogen, Urine NORM (Normal)
[2021-09-19 15:04] LABS: White Blood Cells, Urine TNTC /hpf (0-5)
[2021-09-19 15:05] LABS: Bacteria Many /hpf; Squamous Epithelial Cells Few /hpf (Few)
[2021-09-19 15:06] LABS: Red Blood Cells, Urine 25-50 /hpf (0-2)
== END 2021-09-19 15:12 | disposition home or self-care (01) ==
LOC: ER 11:06
PROVIDERS: Emergency Medicine
DX: S70.01XA Contusion of right hip, initial encounter (principal); S80.01XA Contusion of right knee, initial encounter; W07.XXXA Fall from chair, initial encounter; E78.5 Hyperlipidemia, unspecified; E11.9 Type 2 diabetes mellitus without complications; G35 Multiple sclerosis; Z79.84 Long term (current) use of oral hypoglycemic drugs; Z88.0 Allergy status to penicillin; Z88.1 Allergy status to other antibiotic agents; Z79.899 Other long term (current) drug therapy; Z87.891 Personal history of nicotine dependence; Z74.01 Bed confinement status
CPT/HCPCS: 73502; 73562-RT; 81001; A9270

== ENCOUNTER → 2021-10-12 | Outpatient (CLI) | payer OTHER ==
[~2021-10-12] MED LIST changes: +CEFP200 PO; +Percocet 5-3251 EACH PO
[2021-10-12 16:06] LABS: Source, Urine Straight Cath
[2021-10-12 16:53] LABS: Appearance, Urine Turbid (Clear); Bilirubin, Urine Neg (Neg); Blood, Urine 5+ (Neg); Color, Urine Brown (P-Yellow); Glucose Qualitative, Urine Neg (Neg); Ketones, Urine 1+ (Neg); Leukocyte Esterase, Urine 3+ (Neg); Nitrite, Urine Neg (Neg); Protein, Urine 3+ (Neg); Specific Gravity, Urine 1.025 (1.003-1.022); Urobilinogen, Urine NORM (Normal)
[2021-10-12 18:13] LABS: Red Blood Cells, Urine TNTC /hpf (0-2); White Blood Cells, Urine TNTC /hpf (0-5)
[2021-10-12 18:14] LABS: Amorphous Heavy (0-Heavy); Bacteria Mod /hpf; Hyaline Casts 0-2 /lpf (0-2); Squamous Epithelial Cells Few /hpf (Few)
== END | disposition home or self-care (01) ==
LOC: LAB SHORT 15:10
PROVIDERS: Hospitalist
DX: N18.1 Chronic kidney disease, stage 1 (principal)
CPT/HCPCS: 81001

== ENCOUNTER 2021-10-29 09:53 | Emergency (ER) | payer OTHER ==
[~2021-10-29] VITALS: Ht 165.1 cm; Wt 56.7 kg
[2021-10-29 10:14] LABS: BASOPHILS ABSOLUTE AUTO 0.03 K/mm3 (0.00-0.23); BASOPHILS PERCENT AUTO 1 % (0-2); EOSINOPHILS ABSOLUTE AUTO 0.22 K/mm3 (0.00-0.68); EOSINOPHILS PERCENT AUTO 5 % (0-6); Hemoglobin 10.1 g/dL (11.5-16.0); IMMATURE GRAN ABSOLUTE AUTO 0.02 K/mm3 (0.00-0.10); IMMATURE GRAN PERCENT AUTO 1 % (0-1); LYMPHOCYTES ABSOLUTE AUTO 0.83 K/mm3 (0.84-5.20); LYMPHOCYTES PERCENT AUTO 19 % (21-46); MONOCYTES ABSOLUTE AUTO 0.41 K/mm3 (0.16-1.47); MONOCYTES PERCENT AUTO 10 % (4-13); Mean Corpuscular HGB Conc 31.6 g/dL (31.5-36.5); Mean Corpuscular Volume 82 fL (80-100); Mean Platelet Volume 8.3 fL (9.1-12.4); NEUTROPHILS ABSOLUTE AUTO 2.82 K/mm3 (1.96-9.15); NEUTROPHILS PERCENT AUTO 65 % (41-73); Platelet Count 429 K/mm3 (150-400); RDW Standard Deviation 53.6 fL (35.1-46.3); Red Blood Cell Count 3.89 M/mm3 (3.80-5.20); White Blood Cell Count 4.33 K/mm3 (4.00-11.30)
[2021-10-29 10:27] LABS: Albumin, Blood 2.4 g/dL (3.4-5.0); Albumin/Globulin Ratio 0.5 (0.8-1.8); Bilirubin, Total 0.3 mg/dL (0.1-1.0); Bun/Creatinine Ratio 29.6 (12.0-20.0); Calcium, Blood 8.8 mg/dL (8.5-10.1); Creatinine, Blood 0.74 mg/dL (0.40-1.00); Globulin, Blood 4.6 g/dL (2.2-4.0); Magnesium, Blood 1.8 mg/dL (1.6-2.4); Potassium, Blood 3.7 mmol/L (3.5-5.5)
[2021-10-29] MEDS ORDERED: Oxybutynin Chlor5 M1 PO (10:52)
[2021-10-29] MEDS ORDERED: FUROSEMIDE20 MG PO (10:54)
[2021-10-29] MEDS ORDERED: HIPREX1 G1 PO (10:54)
[2021-10-29] MEDS ORDERED: Cefpodoxime Pr100 MG PO (10:54)
[2021-10-29 13:20] LABS: Source, Urine Foley catheter
[2021-10-29 13:41] LABS: Bilirubin, Urine Neg (Neg); Blood, Urine 5+ (Neg); Glucose Qualitative, Urine Neg (Neg); Ketones, Urine Neg (Neg); Leukocyte Esterase, Urine 3+ (Neg); Nitrite, Urine Neg (Neg); Protein, Urine 2+ (Neg); Urobilinogen, Urine NORM (Normal)
[2021-10-29 14:36] LABS: Appearance, Urine Cloudy (Clear); Color, Urine Yellow (P-Yellow)
[2021-10-29] MEDS ORDERED: CEFP200 PO (15:14)
[2021-10-29 15:23] LABS: White Blood Cells, Urine 50-100 /hpf (0-5)
[2021-10-29 15:26] LABS: Bacteria Many /hpf; Red Blood Cells, Urine 25-50 /hpf (0-2)
[2021-10-29 15:27] LABS: Amorphous Light (0-Heavy); Squamous Epithelial Cells Few /hpf (Few)
== END 2021-10-29 18:42 | disposition home or self-care (01) ==
LOC: ER 09:53
PROVIDERS: Emergency Medicine
DX: N39.0 Urinary tract infection, site not specified (principal); R41.82 Altered mental status, unspecified; E78.5 Hyperlipidemia, unspecified; E11.9 Type 2 diabetes mellitus without complications; Z87.891 Personal history of nicotine dependence; Z79.899 Other long term (current) drug therapy; Z79.84 Long term (current) use of oral hypoglycemic drugs; Z88.0 Allergy status to penicillin; Z88.1 Allergy status to other antibiotic agents; Z96.0 Presence of urogenital implants
CPT/HCPCS: 36415; 71045; 80053; 81001; 83605; 83735; 83880; 85025; 93005; 93010; J0696; J7030

== ENCOUNTER 2021-11-05 16:51 | Emergency (ER) | payer OTHER ==
[~2021-11-05] VITALS: Ht 157.5 cm; Wt 59.0 kg
[~2021-11-05 16:51] MED LIST changes: +Cefpodoxime Pr100 MG PO; +FUROSEMIDE20 MG PO; +HIPREX1 G1 PO; +Oxybutynin Chlor5 M1 PO
[2021-11-05 17:47] LABS: BASOPHILS ABSOLUTE AUTO 0.04 K/mm3 (0.00-0.23); BASOPHILS PERCENT AUTO 0 % (0-2); EOSINOPHILS ABSOLUTE AUTO 0.05 K/mm3 (0.00-0.68); EOSINOPHILS PERCENT AUTO 0 % (0-6); Hematocrit 37.5 % (33.0-51.0); IMMATURE GRAN ABSOLUTE AUTO 0.03 K/mm3 (0.00-0.10); IMMATURE GRAN PERCENT AUTO 0 % (0-1); LYMPHOCYTES ABSOLUTE AUTO 0.69 K/mm3 (0.84-5.20); LYMPHOCYTES PERCENT AUTO 6 % (21-46); MONOCYTES ABSOLUTE AUTO 0.46 K/mm3 (0.16-1.47); MONOCYTES PERCENT AUTO 4 % (4-13); Mean Corpuscular HGB 26.3 pg (26.0-34.0); Mean Corpuscular Volume 82 fL (80-100); Mean Platelet Volume 8.8 fL (9.1-12.4); NEUTROPHILS ABSOLUTE AUTO 10.91 K/mm3 (1.96-9.15); NEUTROPHILS PERCENT AUTO 90 % (41-73); Platelet Count 533 K/mm3 (150-400); RDW Coefficient Variation 18.1 % (11.7-14.2); RDW Standard Deviation 54.1 fL (35.1-46.3); Red Blood Cell Count 4.57 M/mm3 (3.80-5.20); White Blood Cell Count 12.18 K/mm3 (4.00-11.30)
[2021-11-05 18:04] LABS: Albumin, Blood 3.2 g/dL (3.4-5.0); Albumin/Globulin Ratio 0.7 (0.8-1.8); Bilirubin, Total 0.4 mg/dL (0.1-1.0); Calcium, Blood 9.9 mg/dL (8.5-10.1); Creatinine, Blood 0.79 mg/dL (0.40-1.00); Globulin, Blood 4.9 g/dL (2.2-4.0); Potassium, Blood 4.1 mmol/L (3.5-5.5); Total Protein, Blood 8.1 g/dL (6.4-8.2)
[2021-11-05 18:30] LABS: Source, Urine Suprapubic Cath
[2021-11-05 18:43] LABS: Appearance, Urine Cloudy (Clear); Bilirubin, Urine Neg (Neg); Blood, Urine 5+ (Neg); Color, Urine Red (P-Yellow); Glucose Qualitative, Urine Neg (Neg); Ketones, Urine 2+ (Neg); Leukocyte Esterase, Urine 3+ (Neg); Nitrite, Urine Pos (Neg); Protein, Urine 4+ (Neg); Specific Gravity, Urine 1.015 (1.003-1.022); Urobilinogen, Urine NORM (Normal)
[2021-11-05 18:49] LABS: Bacteria Many /hpf; Red Blood Cells, Urine TNTC /hpf (0-2); Squamous Epithelial Cells Mod /hpf (Few); White Blood Cells, Urine TNTC /hpf (0-5)
[2021-11-05 18:50] LABS: Granular Casts 0-2 /lpf (0); Hyaline Casts 0-2 /lpf (0-2)
== END 2021-11-05 21:08 | disposition home or self-care (01) ==
LOC: ER 16:51
PROVIDERS: Student in an Organized Health Care Education/Training Program
DX: T83.018A Breakdown (mechanical) of other urinary catheter, initial encounter (principal); E78.5 Hyperlipidemia, unspecified; E11.9 Type 2 diabetes mellitus without complications; Z88.0 Allergy status to penicillin; Z88.1 Allergy status to other antibiotic agents; Z88.8 Allergy status to other drugs, medicaments and biological substances; Z79.899 Other long term (current) drug therapy; Z79.84 Long term (current) use of oral hypoglycemic drugs; Z86.73 Personal history of transient ischemic attack (TIA), and cerebral infarction without residual deficits; Z87.891 Personal history of nicotine dependence
CPT/HCPCS: 36415; 80053; 81001; 85025

== ENCOUNTER → 2021-12-09 | Outpatient (CLI) | payer OTHER ==
[2021-12-09 20:27] LABS: Creatinine, Urine Random 13.7 mg/dL (27.00-270.00)
[2021-12-09 21:08] LABS: Microalb/Creat Ratio UR, Rand 27445.3 mg/g (0.000-30.000)
== END | disposition home or self-care (01) ==
LOC: LAB 17:40 → LAB SHORT 17:40
PROVIDERS: Hospitalist
DX: R80.9 Proteinuria, unspecified (principal)
CPT/HCPCS: 82043; 82570

== ENCOUNTER → 2021-12-14 | Outpatient (CLI) | payer OTHER ==
[2021-12-14 16:00] LABS: Source, Urine Straight Cath
[2021-12-14 16:42] LABS: Appearance, Urine Turbid (Clear); Bilirubin, Urine Neg (Neg); Blood, Urine 5+ (Neg); Color, Urine Brown (P-Yellow); Glucose Qualitative, Urine Neg (Neg); Ketones, Urine Neg (Neg); Leukocyte Esterase, Urine 3+ (Neg); Nitrite, Urine Neg (Neg); Protein, Urine 3+ (Neg); Urobilinogen, Urine NORM (Normal)
[2021-12-14 16:54] LABS: Bacteria Many /hpf; Red Blood Cells, Urine TNTC /hpf (0-2); Squamous Epithelial Cells Few /hpf (Few); White Blood Cells, Urine TNTC /hpf (0-5)
[2021-12-14 16:55] LABS: Hyaline Casts 0-2 /lpf (0-2); RBC Cast 0-2 /lpf (0); WBC Cast 0-2 /lpf (0)
== END | disposition home or self-care (01) ==
LOC: LAB SHORT 14:45 → LAB 14:45
PROVIDERS: Hospitalist
DX: N39.0 Urinary tract infection, site not specified (principal)
CPT/HCPCS: 81001; 87086

== ENCOUNTER → 2022-04-18 | Outpatient (CLI) | payer OTHER ==
[~2022-04-18] MED LIST changes: +Nitrofurantoin100 M1 PO; +Norco 5-325 Ta1 EACH PO; +PARO2SU
[2022-04-18 16:26] LABS: Source, Urine Foley catheter
[2022-04-18 17:11] LABS: Appearance, Urine Cloudy (Clear); Bilirubin, Urine Neg (Neg); Blood, Urine 5+ (Neg); Glucose Qualitative, Urine Neg (Neg); Ketones, Urine Neg (Neg); Leukocyte Esterase, Urine 3+ (Neg); Nitrite, Urine Neg (Neg); Protein, Urine 2+ (Neg); Urobilinogen, Urine NORM (Normal)
[2022-04-18 17:22] LABS: Color, Urine Pale Yellow (P-Yellow)
[2022-04-18 17:58] LABS: Amorphous Light (0-Heavy); Bacteria Many /hpf; Mucus Light (0-Heavy); Squamous Epithelial Cells Few /hpf (Few); Transitional Epithelial Cells Rare /hpf (0-Rare); White Blood Cells, Urine TNTC /hpf (0-5)
[2022-04-18 17:59] LABS: Calcium Oxalate Crystals Rare /hpf; Hyaline Casts 0-2 /lpf (0-2); Renal Epithelial Rare /hpf (0-Rare)
== END | disposition home or self-care (01) ==
LOC: LAB 15:45 → LAB SHORT 15:45
PROVIDERS: Hospitalist
DX: N39.0 Urinary tract infection, site not specified (principal); Z87.440 Personal history of urinary (tract) infections
CPT/HCPCS: 81001; 87077; 87086; 87186

== ENCOUNTER → 2022-04-19 | Outpatient (CLI) | payer OTHER ==
[2022-04-19 15:34] LABS: Source, Urine Clean Catch
[2022-04-19 17:53] LABS: Appearance, Urine Cloudy (Clear); Bilirubin, Urine Neg (Neg); Blood, Urine 5+ (Neg); Glucose Qualitative, Urine Neg (Neg); Ketones, Urine Neg (Neg); Leukocyte Esterase, Urine 3+ (Neg); Nitrite, Urine Pos (Neg); Protein, Urine 3+ (Neg); Urobilinogen, Urine NORM (Normal)
[2022-04-19 18:19] LABS: Color, Urine Yellow (P-Yellow)
[2022-04-19 18:22] LABS: White Blood Cells, Urine TNTC /hpf (0-5)
[2022-04-19 18:24] LABS: Bacteria Many /hpf; Red Blood Cells, Urine TNTC /hpf (0-2); Squamous Epithelial Cells Few /hpf (Few)
== END | disposition home or self-care (01) ==
LOC: LAB SHORT 15:29
PROVIDERS: Hospitalist
DX: N39.0 Urinary tract infection, site not specified (principal)
CPT/HCPCS: 81001; 87077; 87086; 87186